=== PATIENT | male | born 1955 | race Two or more races ===

== ENCOUNTER 2018-08-04 07:52 | Emergency (ER) | payer OTHER ==
[~2018-08-04] VITALS: Ht 172.7 cm; Wt 77.1 kg
[2018-08-04 08:05] VITALS: BP 137/72
--- NOTE | 2018-08-04 09:37 | RAD ---
EXAM: CT HEAD WITHOUT IV CONTRAST CLINICAL HISTORY: FALL FROM LADDER R SIDE RIB PAIN NO PREV HEAD PAIN COMPARISON: None. TECHNIQUE: Routine CT of the head without contrast. Soft tissues and bone windows were reviewed. PQRS compliance statement - One or more of the following individualized dose reduction techniques were utilized for this study: 1. Automated exposure control 2. Adjustment of the mA and/or kV according to patient size 3. Use of iterative reconstruction technique FINDINGS: There is no evidence of hemorrhage, mass or extra-axial fluid collection. Holman-white differentiation is maintained with no evidence of edema. There is no mass effect or shift of the intracranial structures. The ventricles, basilar cisterns and cortical sulci are normal in size and configuration for the patients stated age. The cerebellum and brainstem are unremarkable. The calvarium demonstrates no evidence of fracture or focal lesion. There is normal aeration of the visualized paranasal sinuses and mastoid air cells. The visualized portions of the orbits are normal. IMPRESSION: 1. No evidence of acute intracranial process. EXAM: CT CERVICAL SPINE WITHOUT IV CONTRAST CLINICAL HISTORY: FALL FROM LADDER R SIDE RIB PAIN NO PREV HEAD PAIN COMPARISON: None available. TECHNIQUE: Helical CT of the cervical spine was performed. Axial, coronal and sagittal reformatted images were also performed. PQRS compliance statement - One or more of the following individualized dose reduction techniques were utilized for this study: 1. Automated exposure control 2. Adjustment of the mA and/or kV according to patient size 3. Use of iterative reconstruction technique FINDINGS: Vertebral body heights are preserved. No evidence of acute fracture. Intervertebral disc heights are also grossly preserved. Atlantodental degenerative changes are seen. Straightening of the normal cervical lordosis. No spondylolisthesis. Ossification within the ligamentum nuchae, chronic. C2-C3: No significant central canal stenosis or neural foraminal narrowing. C3-C4: No significant central canal stenosis or neural foraminal narrowing. C4-C5: Mild right greater than left uncovertebral hypertrophy and advanced right facet degenerative changes cause minimal associated central canal stenosis and moderate to severe right neural foraminal narrowing. C5-C6: Mild left uncovertebral hypertrophy results in mild left neural foraminal narrowing. C6-C7: Mild left uncovertebral hypertrophy results in mild left neural foraminal narrowing. C7-T1: There is no evidence of disc herniation, spinal stenosis or foraminal compromise. IMPRESSION: Normal CT scan of the cervical spine. EXAM: CT THORACIC SPINE WITHOUT CONTRAST CLINICAL HISTORY:FALL FROM LADDER R SIDE RIB PAIN NO PREV HEAD PAIN COMPARISON: None available. TECHNIQUE: Helical CT of the thoracic spine was performed and axial, coronal and sagittal reformatted images were generated. PQRS compliance statement - One or more of the following individualized dose reduction techniques were utilized for this study: 1. Automated exposure control 2. Adjustment of the mA and/or kV according to patient size 3. Use of iterative reconstruction technique FINDINGS: There is normal alignment of the thoracic spine. There is preservation of height of the vertebral bodies with normal bone density. The height of the intervertebral discs is maintained. No significant bony central canal stenosis or neural foraminal narrowing. Visualized retroperitoneum is unremarkable. On this marginal evaluation of the lungs, no definite pneumothorax. IMPRESSION: No evidence for acute fracture or subluxation. Electronically signed by: Philip Pickens MD (08/04/2018 9:34 AM) [facility]
--- NOTE | 2018-08-04 10:24 | RAD ---
Exam:Right ribs with PA chest Date: 08/04/2018 9:08 AM Comparison: No prior Indication: PT FELL OFF LADDER ONTO PLASTIC CRATES. PAIN TO RT LAT RIBS Findings/ Impression: The heart is not enlarged. Mediastinal and hilar contours are normal. No focal parenchymal airspace opacity. No pleural effusion or pneumothorax. AP, Oblique and Spot images of the right ribs demonstrate mild irregularity at the posterior lateral aspect of the right seventh and eighth ribs. These are equivocal for fracture and can be correlated with patient's symptoms. Negative focal pleural elevation. Symmetrical intercostal spacing. Electronically signed by: Philip Pickens MD (08/04/2018 10:20 AM) [facility]
[2018-08-04] MEDS ORDERED: HYDR-2765 PO (11:26)
[2018-08-04] MEDS ORDERED: NAPR-683 PO (11:26)
--- NOTE | 2018-08-04 11:26 | PHYS DOC ---
Past Medical History Past Medical History: Hypertension Additional Past Medical Histor: ENLARGED HEART, NON-COMPLIANT W/ MEDICATIONS Past Surgical History: Tonsillectomy Additional Past Surgical Histo: HAND SURGERY Alcohol Use: Rarely Drug Use: None Adult General Chief Complaint Chief Complaint: MECHANICAL FALL HPI HPI Patient is a 62-year-old male who presents with complaint of neck and back pain as well as right-sided rib pain that started after having fallen while he was at work. Patient states that he was up on a ladder and was leaning over and reaching to pick up worker a crate that was on a conveyor belt but the crate that he was lifting got stuck on the belt and pulled him off of ladder. Patient states that he had fallen on his right side into other crates. He states that it was approximately between 4 and 5 feet off the ground. He denies having had loss of consciousness. He rates pain at a 7-8 out of 10. He states that pain is worsened with movement. Review of Systems Review of Systems Constitutional: Denies fever or chills [] Respiratory: Denies cough or shortness of breath [] Cardiovascular: No additional information not addressed in HPI [] GI: Denies abdominal pain, nausea, vomiting or diarrhea [] Musculoskeletal: Positive back and back pain. Positive right sided rib Pain [] All other systems were reviewed and found to be within normal limits, except as documented in this note. Current Medications Current Medications Current Medications Medications (Trade) Dose Ordered Sig/Alison Start Time Stop Time Status Last Admin Dose Admin Acetaminophen/ Hydrocodone Bitart (Lortab 7.5/325) 1 tab 1X ONCE 08/04/18 11:45 08/04/18 11:46 DC 08/04/18 11:59 1 TAB Allergies Allergies Allergies Coded Allergies Type Severity Reaction Last Updated Verified codeine Allergy Intermediate Nausea 06/12/14 Yes Physical Exam Physical Exam Constitutional: Well developed, well nourished, no acute distress, non-toxic appearance. [] HENT: Normocephalic, atraumatic, bilateral external ears normal, oropharynx moist, no oral exudates, nose normal. [] Eyes: PERRLA, EOMI, conjunctiva normal, no discharge. [] Neck: Normal range of motion, no tenderness, supple, no stridor. [] Cardiovascular: Regular rate and rhythm, no murmur [] Lungs & Thorax: Bilateral breath sounds clear to auscultation [] Abdomen: Bowel sounds normal, soft, no tenderness. [] Skin: Warm, dry, no erythema, no rash. [] Back: Patient does report to you spinous point tenderness around the thoracic region of T6 through T8. There is also tenderness to palpation over the posterior aspect of ribs T7-T9. [] Extremities: No tenderness, no cyanosis, no clubbing, ROM intact, no edema. [] Neurologic: Alert and oriented X 3, normal motor function, normal sensory function, no focal deficits noted. [] Current Patient Data Vital Signs Vital Signs Date Time Temp Pulse Resp B/P (MAP) Pulse Ox O2 Delivery O2 Flow Rate FiO2 08/04/18 11:59 18 97 Room Air 08/04/18 08:05 97.7 59 137/72 (93) 97.7 EKG EKG [] Radiology/Procedures Radiology/Procedures [] Impressions: PROCEDURE: RIBS RIGHT AND PA CHEST Exam:Right ribs with PA chest Date: 08/04/2018 9:08 AM Comparison: No prior Indication: PT FELL OFF LADDER ONTO PLASTIC CRATES. PAIN TO RT LAT RIBS Findings/ Impression: The heart is not enlarged. Mediastinal and hilar contours are normal. No focal parenchymal airspace opacity. No pleural effusion or pneumothorax. AP, Oblique and Spot images of the right ribs demonstrate mild irregularity at the posterior lateral aspect of the right seventh and eighth ribs. These are equivocal for fracture and can be correlated with patient's symptoms. Negative focal pleural elevation. Symmetrical intercostal spacing. Electronically signed by: Philip Pickens MD (08/04/2018 10:20 AM) [facility] Course & Med Decision Making Course & Med Decision Making Pertinent Labs and Imaging studies reviewed. (See chart for details) [] Dragon Disclaimer Dragon Disclaimer This electronic medical record was generated, in whole or in part, using a voice recognition dictation system. Departure Departure Impression: Primary Impression: Rib fractures Disposition: 01 HOME, SELF-CARE Condition: STABLE Referrals: NO PCP (PCP) Patient Instructions: Rib Fracture Scripts Naproxen (NAPROSYN) 500 Mg Tablet 1 TAB PO BID PRN for PAIN, #20 TAB Prov: DAVID QUINTANILLA Jr. DO 08/04/18 Hydrocodone Bit/Acetaminophen (HYDROCODONE-APAP 7.5-325 ) 1 Tab Tablet 1 TAB PO PRN Q6HRS PRN for PAIN, #15 TAB 0 Refills Prov: DAVID QUINTANILLA Jr. DO 08/04/18 Problem Qualifiers Primary Impression: Rib fractures Encounter type: initial encounter Rib fracture type: multiple ribs Fracture type: closed Laterality: right Qualified Codes: S22.41XA - Multiple fractures of ribs, right side, initial encounter for closed fracture DAVID QUINTANILLA Jr. DO Aug 04, 2018 11:26
[2018-08-04] MEDS ORDERED: HYDROcodone/APAP 7.5/325MG 1 TAB TABLET PO ONE (11:45)
== END 2018-08-04 11:57 | disposition home or self-care (01) ==
LOC: ER 07:52
DX: S22.41XA Multiple fractures of ribs, right side, initial encounter for closed fracture (principal); M54.2 Cervicalgia; M54.6 Pain in thoracic spine; I10 Essential (primary) hypertension; Z88.5 Allergy status to narcotic agent; W11.XXXA Fall on and from ladder, initial encounter; Y93.89 Activity, other specified; Y92.89 Other specified places as the place of occurrence of the external cause; Y99.8 Other external cause status
CPT/HCPCS: 70450; 71101; 72125; 72128; 99284-25

== ENCOUNTER → 2020-08-05 | Outpatient (CLI) | payer MEDICARE, OTHER ==
[2019-11-30 15:33] VITALS: BP 145/83
[~2020-08-05] MED LIST: ACET325T9 PO; AMLO-187 PO; ATOR20TA58 PO; CLON0.2T PO; CONTRAST GIVEN. MC PRN; DOCU-153 PO; HYDR-2765 PO; IOHEXOL 300 MG/ML 100ML VIAL. IV ONE; LORA-434 PO; LORA0.5T96 PO; MULT1TAB90 PO; NAPR-683 PO; NICO1PAT25 TP
--- NOTE | 2020-08-05 09:19 | RAD ---
CTA of the head and neck with contrast 08/05/2020 Clinical history: Left carotid stenosis. Technique: After the intravenous administration of 75 cc of Omnipaque 300, contiguous, 0.625 mm axial sections were obtained through the upper chest, neck and head. Multiplanar 3-D MIP and volume render ed 3-D reconstructed images were obtained. One or more of the following individualized dose reduction techniques were utilized for this study: 1. Automated exposure control. 2. Adjustment of the mA and/or kV according to patient size. 3. Use of iterative reconstruction technique. Findings: Comparison is made to patient's CT scan of the head dated 11/27/2019 . Scattered atherosclerotic plaque formation is seen involving the thoracic aortic arch and its branche s. The origins of the brachiocephalic, left common carotid and left subclavian arteries from the thor acic aortic arch are patent. The origin of the right common carotid artery and both vertebral arterie s are patent. The proximal/mid common carotid arteries are mildly tortuous but patent. Mild to moderate atheromatou s/atherosclerotic plaque formation is seen involving both carotid bifurcations, left greater than rig ht. A 75 percent stenosis is seen involving the left carotid bulb just inferior to the left carotid b ifurcation. This measures 3 mm in length. A 50 percent stenosis is seen involving the origin of the l eft internal carotid artery. This measures 2 mm in length. No hemodynamically significant stenosis is seen involving the right carotid bifurcation or right internal carotid artery. The mid/distal product development intern al carotid arteries within the neck or tortuous but patent. The left vertebral artery is dominant. Both vertebral arteries are patent. Intracranially, scattered atherosclerotic plaque formation is seen involving the cavernous portions o f both internal carotid arteries. No hemodynamically significant stenosis or area of occlusion is see n. Mild atheromatous plaque formation seen involving the basilar artery. No area of stenosis is seen. Mild to moderate atheromatous plaque formation is seen involving the anterior, middle and posterior cerebral arteries and their branches. No area of stenosis or occlusion is seen. No intracranial aneur ysm is noted. The major dural venous sinuses are patent. No area of abnormal contrast enhancement is seen. The area of hemorrhage seen within the left thalamus and the patient's previous CT scan of the head appears t o have resolved. Moderate to severe mucosal thickening is seen on the left maxillary sinus. No acute soft tissue abnormality is seen involving the neck. Degenerative changes are seen involving the uncov ertebral and facet joints throughout the cervical disc spaces. Impression: 1. Mild to moderate atheromatous/atherosclerotic plaque formation is seen involving both carotid bifu rcations, left greater than right. A 75 percent stenosis is seen involving the left carotid bulb just inferior to the left carotid bifurcation. This measures 3 mm in length. A 50 percent stenosis is see n involving the origin of the left internal carotid artery. This measures 2 mm in length. 2. No intracranial stenosis or area of occlusion is seen. Stenosis calculation for CTA are based on measurement of the distal internal carotid artery diameter in accordance with the NASCET methodology. Electronically signed by: Puneet Hicks MD (08/05/2020 9:16 AM) [id number]
== END ==
LOC: CT 07:17
PROVIDERS: ATTEND Psychiatry & Neurology Neurology with Special Qualifications in Child Neurology
DX: I65.22 Occlusion and stenosis of left carotid artery (principal); I70.0 Atherosclerosis of aorta
CPT/HCPCS: 36415; 70496; 70498; 82565; 84520; Q9967

== ENCOUNTER → 2020-10-14 | Outpatient (CLI) | payer MEDICARE, OTHER ==
[2019-11-30 15:33] VITALS: BP 145/83
[~2020-10-14] MED LIST changes: +ASPI-630 PO; +CITA20TA6 PO; -CONTRAST GIVEN. MC PRN; +FOLI0.8C PO; -IOHEXOL 300 MG/ML 100ML VIAL. IV ONE; +LISI20TA18 PO; -MULT1TAB90 PO; +MULT1TAB92 PO; +VALP250C2 PO
== END ==
LOC: LAB 09:05
PROVIDERS: ATTEND Specialist
DX: Z01.812 Encounter for preprocedural laboratory examination (principal); Z20.822 Contact with and (suspected) exposure to COVID-19
CPT/HCPCS: U0003

== ENCOUNTER → 2020-10-16 | Day surgery (SDC) | payer MEDICARE, OTHER ==
[~2020-10-16] VITALS: Ht 172.7 cm; Wt 77.1 kg
[~2020-10-16] MED LIST changes: +HEPARIN SODIUM 5,000 UNIT in IV RINGERS,LACTATED 500ML 500 ML IRR ONE; +HYDROmorphone 2 MG/ML VIAL IVP PRN; +IV RINGERS,LACTATED 1000ML 1,000 ML IV SCH; +MORPHINE SULFATE 2 MG/ML VIAL. IVP PRN; +PROCHLORPERAZINE 10 MG/2 ML VIAL. IVP PRN; +fentaNYL PF VIAL 100 MCG/2 ML VIAL IVP PRN
[2020-10-16 07:18] LABS: BARBITURATES NEG (NEG); BENZODIAZEPINES NEG (NEG); CANNABINOIDS NEG (NEG); COCAINE NEG (NEG); METHADONE NEG (NEG); OPIATES NEG (NEG); PHENCYCLIDINE NEG (NEG)
[2020-10-16 07:22] LABS: AMPHETAMINE/METHAMPHETAMINE POS (NEG)
[2020-10-16 07:26] VITALS: BP 193/92
--- NOTE | 2020-10-16 07:32 | NUR ---
PT HAS BP OF 193/92 AND HAS +DRUG SCREEN TEST FOR AMPHETAMINE/METHAMPHETAMINE. DR VELAZQUEZ AND MERYL MORENO NOTIFIED. DR SHETH TO COME TALK TO THE PT AND FAMILY. STATED SURGRY WAS CANCELLED. OR NOTIFIED.
--- NOTE | 2020-10-16 09:49 | NUR ---
INTO TALK TO PT. PT GOT DRESSED AND WENT HOME WITH FAMILY.
--- NOTE | 2020-10-16 09:56 | PDOC ---
Provider Note Date of Service: DATE: 10/16/20 TIME: 09:52 Provider Note He was somnolent this am. A urine drug screen was sent this am. It was positive for amphetamines. He admitted to use, but would not state when he last used. He needs to be off of elicit drugs for at least 3-4 weeks prior to proceeding with elective surgery. I stressed importance of abstinence from Methamphetamine to him and his family at the bedside. Will cancel surgery today. Repeat outpatient urine drug screen in 2-3 weeks. Justifications for Admission Other Justification MAXWELL SHETH MD Oct 16, 2020 09:56
== END | disposition home or self-care (01) ==
LOC: UNDOADMIN 06:48 → OPS 06:48 → OPSVCIP 06:48 → UNDODISIN 08:00 → EDSTATUS 09:15
PROVIDERS: ATTEND Specialist
DX: F15.99 Other stimulant use, unspecified with unspecified stimulant-induced disorder (principal); Z53.8 Procedure and treatment not carried out for other reasons; I10 Essential (primary) hypertension; E78.00 Pure hypercholesterolemia, unspecified; K21.9 Gastro-esophageal reflux disease without esophagitis; M19.90 Unspecified osteoarthritis, unspecified site; F32.9 Major depressive disorder, single episode, unspecified; Z79.899 Other long term (current) drug therapy; Z20.822 Contact with and (suspected) exposure to COVID-19; Z98.890 Other specified postprocedural states; Z79.82 Long term (current) use of aspirin; Z88.5 Allergy status to narcotic agent
CPT/HCPCS: 80307; J7120; U0003; J0690; J1644